=== PATIENT | female | born 1985 | race Caucasian/White ===

== ENCOUNTER → 2019-04-24 09:16 | Outpatient (CLI) | payer OTHER, MEDICAID, SELFPAY ==
--- NOTE | 2019-04-24 09:19 | DI.US.S_ITS ---
PROCEDURE: US PELVIC COMPLETE INDICATIONS: CHECK IUD PLACEMENT TECHNIQUE: Real-time scanning was performed of the pelvic organs, with image documentation. Additional endovaginal scanning was necessary due to incomplete visualization of the adnexal and endometrial structures by transabdominal scanning. COMPARISON: US, PELVIS SONO TRANSVAGINAL (PNL), 01/04/2015, 11:25. FINDINGS: Transabdominal scanning: Limited scanning through the kidneys shows no hydronephrosis. No pathologic free abdominal or pelvic fluid. Endovaginal scanning: Uterus: Uterus is normal in size at 10.8 x 5.6 x 6.4 cm. The endometrium measures 10.6 mm in combined thickness. Intrauterine device in expected position. Ovaries: Ovaries not identified. No adnexal masses. IMPRESSION: 1. Intrauterine device in expected position. 2. Ovaries not visualized. Dictated by: Goyo REDDY Interpreted: Sharri Alfonso MD on 04/24/2019 at 10:24 Approved by: Sharri Alfonso M.D. on 04/24/2019 at 10:46
== END ==
PROVIDERS: Family Provider Internal Medicine; PCP Internal Medicine; Visit Provider Obstetrics & Gynecology
DX: Z30.431 Encounter for routine checking of intrauterine contraceptive device (principal)
CPT/HCPCS: 76856

== ENCOUNTER → 2019-05-08 14:15 | Outpatient (CLI) | payer OTHER, MEDICAID, SELFPAY ==
[2019-05-08 15:26] LABS: Alanine Aminotransferase 39 IU/L (9-52); Albumin 4.4 g/dL (3.5-5.0); Albumin Globulin Ratio 1.4 (1.0-2.8); Alkaline Phosphatase 53 U/L (38-126); Aspartate Aminotransferase 27 IU/L (14-36); BUN Creatinine Ratio 16.3 (6-22); Bilirubin Total 0.5 mg/dL (0.2-1.3); Blood Urea Nitrogen 13 mg/dL (7-17); Calcium 9.6 mg/dL (8.4-10.2); Carbon Dioxide 29 mmol/L (22-32); Chloride 102 mmol/L (98-107); Estimated Glomerular Filt Rate > 60.0 mL/min (>60); Globulin 3.2 g/dL (1.7-4.1); Glucose 107 mg/dL (70-100); HEMOLYSIS < 15 (0-50); Potassium 4.2 mmol/L (3.4-5.1); Sodium 139 mmol/L (137-145); Total Protein 7.6 g/dL (6.3-8.2)
[2019-05-08 15:28] LABS: Hemoglobin A1C% w Est Avg Glu 5.2 % (4.0-6.0)
[2019-05-08 15:56] LABS: TSH w/ Reflex to FT4 2.24 uIU/mL (0.47-4.68)
== END ==
PROVIDERS: Family Provider Internal Medicine; PCP Internal Medicine; Visit Provider Family Medicine
DX: E66.01 Morbid (severe) obesity due to excess calories (principal); Z86.32 Personal history of gestational diabetes
CPT/HCPCS: 36415; 80053; 83036; 84443

== ENCOUNTER → 2019-11-19 10:53 | Outpatient (CLI) | payer OTHER, MEDICAID, SELFPAY ==
[2019-11-19 12:13] LABS: Add Manual Diff / Slide Review NO; Basophils Absolute Auto 0 /uL (0-100); Basophils Percent Auto 0.5 % (0-2); Eosinophils Absolute Auto 100 /uL (0-450); Eosinophils Percent Auto 1.8 % (2-4); Hematocrit 36.4 % (36-46); Hemoglobin 12.1 g/dL (12.0-16.0); Lymphocytes Absolute Auto 1900 /uL (1100-4500); Mean Corpuscular HGB Conc 33.3 % (30-36); Mean Corpuscular Hemoglobin 29.1 PG (26-34); Mean Corpuscular Volume 87.4 fL (80-100); Monocytes Absolute Auto 300 /uL (0-900); Monocytes Percent Auto 5.4 % (3-14); Neutrophils Absolute Auto 3300 /uL (1500-7000); Neutrophils Percent Auto 59.3 % (50-75); Platelet Count 212 X10^3/uL (150-400); Red Blood Cell Count 4.16 X10^6/uL (4.0-5.2); Red Cell Distribution Width 15.2 % (11.6-14.8); White Blood Cell Count 5.6 X10^3/uL (4.5-11.0)
[2019-11-19 12:39] LABS: HEMOLYSIS < 15 (0-50); Iron 46 ug/dL (37-170)
[2019-11-19 12:50] LABS: Percent Iron Saturation 16 % (15-50); Total Iron Binding Capacity 286 ug/dL (265-497); Transferrin 231 mg/dL (206-381)
== END ==
PROVIDERS: Family Provider Internal Medicine; PCP Family Medicine; Visit Provider Family Medicine
DX: Z86.2 Personal history of diseases of the blood and blood-forming organs and certain disorders involving the immune mechanism (principal)
CPT/HCPCS: 36415; 83540; 83550; 85025

== ENCOUNTER → 2020-11-11 13:51 | Outpatient (CLI) | payer OTHER, MEDICAID, SELFPAY ==
[2020-11-11 14:39] LABS: Add Manual Diff / Slide Review NO; Basophils Absolute Auto 0 /uL (0-100); Basophils Percent Auto 0.4 % (0-2); Eosinophils Absolute Auto 100 /uL (0-450); Eosinophils Percent Auto 1.5 % (2-4); Hematocrit 36.6 % (36-46); Hemoglobin 12.2 g/dL (12.0-16.0); Lymphocytes Absolute Auto 2000 /uL (1100-4500); Lymphocytes Percent Auto 30.9 % (25-40); Mean Corpuscular HGB Conc 33.4 % (30-36); Mean Corpuscular Hemoglobin 29.9 PG (26-34); Mean Corpuscular Volume 89.4 fL (80-100); Monocytes Absolute Auto 500 /uL (0-900); Monocytes Percent Auto 7.9 % (3-14); Neutrophils Absolute Auto 3900 /uL (1500-7000); Neutrophils Percent Auto 59.3 % (50-75); Platelet Count 211 X10^3/uL (150-400); White Blood Cell Count 6.5 X10^3/uL (4.5-11.0)
[2020-11-11 14:55] LABS: Hemoglobin A1C% w Est Avg Glu 5.6 % (4.0-6.0)
[2020-11-11 14:56] LABS: Alanine Aminotransferase 134 IU/L (<35); Albumin 4.2 g/dL (3.5-5.0); Albumin Globulin Ratio 1.3 (1.0-2.8); Alkaline Phosphatase 84 U/L (38-126); Aspartate Aminotransferase 68 IU/L (14-36); BUN Creatinine Ratio 21.1 (6-22); Bilirubin Total 0.4 mg/dL (0.2-1.3); Blood Urea Nitrogen 15 mg/dL (7-17); Calcium 9.2 mg/dL (8.4-10.2); Carbon Dioxide 28 mmol/L (22-32); Chloride 105 mmol/L (98-107); Cholesterol 174 mg/dL (140-199); Estimated Glomerular Filt Rate > 60.0 mL/min (>60); Globulin 3.3 g/dL (1.7-4.1); Glucose 108 mg/dL (70-100); HDL Cholesterol 44 mg/dL (40-60); HEMOLYSIS < 15 (0-50); LDL Cholesterol Calculated 84 mg/dL (<100); Potassium 4.1 mmol/L (3.4-5.1); Sodium 138 mmol/L (137-145); Total Protein 7.5 g/dL (6.3-8.2); Triglycerides 228 mg/dL (35-150)
== END ==
PROVIDERS: Family Provider Internal Medicine; PCP Family Medicine; Referring Provider Family Medicine; Visit Provider Family Medicine
DX: E66.01 Morbid (severe) obesity due to excess calories (principal); Z68.43 Body mass index [BMI] 50.0-59.9, adult; Z86.32 Personal history of gestational diabetes
CPT/HCPCS: 36415; 80053; 80061; 83036; 84443; 85025

== ENCOUNTER → 2021-01-10 08:55 | Outpatient (CLI) | payer OTHER, MEDICAID, SELFPAY ==
[2021-01-10 11:35] LABS: COVID19 -Nasal RAPID Negative (Negative)
== END ==
PROVIDERS: Family Provider Internal Medicine; PCP Family Medicine; Visit Provider Family Medicine Sleep Medicine
DX: Z20.822 Contact with and (suspected) exposure to COVID-19 (principal)
CPT/HCPCS: 87635; C9803

== ENCOUNTER 2022-06-04 13:55 | Emergency (ER) | payer OTHER, MEDICAID, SELFPAY ==
[2022-06-04 14:00] VITALS: BP 176/97; PULSE 97; RESP 18; TEMP 36.3; O2SAT 100; BMI 56.5
--- NOTE | 2022-06-04 18:27 | ED.EXTPRO ---
HPI - Extremity Problem General Chief complaint: Weakness Stated complaint: Pain and weakened motor skills in both arms Time Seen by Provider: 06/04/22 16:28 Source: patient Mode of arrival: Ambulatory History of Present Illness HPI Narrative: 36-year-old female former smoker presents with a chief complaint of pain in her bilateral upper extremities from the elbows to her fingers. She states that she recently started a new job and has been using her arms more than normal but denies any other change. She has some tingling in her fingertips on occasion but largely complains of pain in her forearms particularly with use. She initially states she felt like they were weak but after careful discussion it would seem that it just hurts her to use them. She has no issues above the elbows and has no other neurologic symptoms. She denies headache, blurred vision or trouble with speech. She has no neck pain, trauma or history of neck issues. She denies any lower extremity pain, swelling tingling or weakness. She denies any loss of control of bowel or bladder. She has had no rash. Related Data Home Medications Medication Instructions Recorded Confirmed fluoxetine 60 mg tablet 60 mg PO DAILY 12/26/20 09/18/21 mirtazapine 30 mg tablet 30 mg PO BEDTIME 12/26/20 09/18/21 Previous Rx's Medication Instructions Recorded hydroxyzine HCl 25 mg tablet See Rx Instructions PO BEDTIME #60 01/28/20 tabs norethindrone 0.5 mg-ethinyl 1 tab PO DAILY #28 tabs 05/15/21 estradiol 35 mcg tablet (Necon) Allergies Allergy/AdvReac Type Severity Reaction Status Date / Time No Known Drug Allergies Allergy Verified 12/26/20 16:12 Review of Systems Review of Systems Narrative: GENERAL: Denies chills, fatigue, malaise, fever, sweats. HEENT: Denies sinus pain, ear pain, sore throat, difficulty swallowing, dizziness. RESPIRATORY: Denies dyspnea, cough, wheezing, hemoptysis, sputum. CARDIOVASCULAR: Denies chest pain, palpitations, orthopnea, edema, GASTROINTESTINAL: Denies nausea, vomiting, abdominal pain, diarrhea, constipation, melena. : Denies dysuria, frequency, incontinence, hematuria, urinary retention. MUSCULOSKELETAL: See HPI SKIN: Denies rash, skin lesions, or other NEUROLOGIC: see HPI PSYCHIATRIC: No concerning psychosocial issues. 12 point review of systems is negative except for those stated above Patient History Medical History Depression (~2011) History of gestational diabetes mellitus (GDM) (08/15/16) Menorrhagia Substance abuse Vision disorder Surgical History Loss of teeth due to extraction Status post delivery (09/09/15) Status post delivery (10/31/04) Status post delivery (03/25/05) Family History Father Heart disease Alcohol abuse Grandfather Diabetes mellitus Obesity Mother Age: 58 Depression Hypertension High cholesterol Mental health problem Sleep apnea Obesity Diabetes mellitus Heart disease Family/Other Loud snoring Restless leg Bipolar disorder Alcohol abuse Social History marital status: unmarried,single number of children: 3 household members: family lives independently: Yes occupational status: employed Smoking Status: Former smoker alcohol intake: current substance use type: does not use and other Smoking Status: Former smoker alcohol intake frequency: holidays/special occasions only Substance Use Type: does not use Exam Narrative Exam Narrative: GENERAL: [36] year old patient appears stated age. Well-developed patient, in mild distress. Tearful HEAD: Atraumatic. Normocephalic. EYES: Pupils equal round and reactive. Extraocular motions intact. No scleral icterus. No injection or drainage. ENT: Nose without bleeding, purulent drainage. Throat without erythema, tonsillar hypertrophy or exudate. Airway patent. NECK: Trachea midline. Non tender, no change in symptoms with axial loading of cervical spine. CARDIOVASCULAR: Regular rate and rhythm without murmurs, gallops, or rubs. RESPIRATORY: Clear to auscultation. Breath sounds equal bilaterally. No wheezes, rales, or rhonchi. GASTROINTESTINAL: Abdomen soft, non-tender, nondistended. EXTREMITIES: No edema or joint tenderness. BACK: Nontender without deformity or crepitance. No flank tenderness. NEURO: AOx3. 5/5 strength in all measurable plata of upper extremities, no measurable sensory deficit. No swelling, erythema, warmth, fluctuance or induration. No increase symptoms with Tinel's or reverse Phalen's SKIN: No rash or erythema of visible areas Initial Vital Signs Initial Vital Signs: Vital Signs Temperature 97.4 F L 06/04/22 14:00 Pulse Rate 97 H 06/04/22 14:00 Respiratory Rate 18 06/04/22 14:00 Blood Pressure 176/97 H 06/04/22 14:00 Pulse Oximetry 100 06/04/22 14:00 Oxygen Delivery Method 06/04/22 14:00 Course Orders Ordered: ED Orders 06/04/22 18:30 CBC Auto Diff [Complete Blood Count AUTO DIFF] Stat CK [Creatine Kinase] Stat CMP [Comprehensive Metabolic Panel] Stat CRP [C-Reactive Protein Quant] Stat ESR [Erythrocyte Sedimentation Rate] Stat Vital Signs Vital signs: Vital Signs - 8 hr 06/04/22 19:41 06/04/22 19:43 06/04/22 19:43 Pulse Rate 94 H 94 H Blood Pressure 160/116 H Pulse Oximetry 100 98 MDM - Extremity (Nontraumatic) Lab Data Result diagrams: 06/04/22 18:30 06/04/22 18:30 Labs: Lab Results 06/04/22 06/04/22 Range/Units 18:30 18:30 WBC 7.7 (4.5-11.0) X10^3/uL RBC 4.14 (4.0-5.2) X10^6/uL Hgb 9.2 L (12.0-16.0) g/dL Hct 28.9 L (36-46) % MCV 69.8 L (80-100) fL MCH 22.2 L (26-34) PG MCHC 31.8 (30-36) % RDW 17.5 H (11.6-14.8) % Plt Count 312 (150-400) X10^3/uL Neut % (Auto) 55.2 (50-75) % Lymph % (Auto) 36.3 (25-40) % [place] % (Auto) 5.8 (3-14) % Eos % (Auto) 2.2 (2-4) % Baso % (Auto) 0.5 (0-2) % Neut # (Auto) 4200 (2247-5265) /uL Lymph # (Auto) 2800 (8662-7636) /uL [place] # (Auto) 400 (0-900) /uL Eos # (Auto) 200 (0-450) /uL Baso # (Auto) 0 (0-100) /uL RBC Morphology See below Hypochromasia 2+ H Anisocytosis 2+ H Microcytosis 2+ H ESR 55 H (0-20) MM/HR Sodium 138 (137-145) mmol/L Potassium 3.9 (3.4-5.1) mmol/L Chloride 104 (98-107) mmol/L Carbon Dioxide 26 (22-32) mmol/L BUN 13 (7-17) mg/dL Creatinine 0.74 (0.52-1.04) mg/dL Estimated GFR > 60 (>60) mL/min BUN/Creatinine Ratio 17.6 (6-22) Glucose 102 H (70-100) mg/dL Calcium 9.0 (8.4-10.2) mg/dL Total Bilirubin 0.4 (0.2-1.3) mg/dL AST 32 (14-36) IU/L ALT 37 H (<35) IU/L Alkaline Phosphatase 73 (38-126) U/L Total Creatine Kinase 73 (30-135) U/L C-Reactive Protein 1.7 H (<1.0) mg/dL Total Protein 8.6 H (6.3-8.2) g/dL Albumin 4.7 (3.5-5.0) g/dL Globulin 3.9 (1.7-4.1) g/dL Albumin/Globulin Ratio 1.2 (1.0-2.8) Discharge Plan Departure Patient Disposition: Home Clinical Impression: Bilateral arm pain, Iron deficiency anemia Instructions: DI for Arm Pain Activity Restrictions/Additional Instructions: *You have been diagnosed with [bilateral forearm pain with evidence of iron deficiency anemia and elevated inflammatory markers.] *What to do: *Please consider the routine use of ibuprofen 600mg every 6 hours for the next few days. Also, do not start taking iron supplementation until you follow up with your doctor. [ ] New medication prescriptions sent to your pharmacy: [ ] [ ] New medication written as a paper prescription [ ] No new medications given *Please follow up with your primary care provider in 2-3 days, call for an appointment. Let them know you were seen in the Emergency Department and that we ask that you be seen in follow up. We will electronically transmit a record of today's note if your PCP is in our system *If you do not have a primary care provider please contact the [facility] Resource line at [phone]. They will ask some questions about your medical history and help get you set up with a doctor in the community. *Return to Emergency Department if you should have any new, worsening or concerning symptoms, such as [fever greater than 101 F, shaking chills, worsening pain, persistent vomiting or other bothersome symptoms] Prescriptions: No Action hydroxyzine HCl 25 mg tablet See Rx Instructions PO BEDTIME Qty: 60 0RF Rx Instructions: Take 1 to 2 tabs at bedtime as needed for sleep. Necon 0.5/35 (28) 0.5-35 mg-mcg tablet 1 tab PO DAILY Qty: 28 11RF fluoxetine 60 mg tablet 60 mg PO DAILY mirtazapine 30 mg tablet 30 mg PO BEDTIME Referrals: Becki Brandon DO [Primary Care Provider] - Stand Alone Forms: Work Release Note Visit Report Forms: Patient Portal/API
[2022-06-04 18:57] LABS: Add Manual Diff / Slide Review NO; Basophils Absolute Auto 0 /uL (0-100); Basophils Percent Auto 0.5 % (0-2); Eosinophils Absolute Auto 200 /uL (0-450); Eosinophils Percent Auto 2.2 % (2-4); Hematocrit 28.9 % (36-46); Hemoglobin 9.2 g/dL (12.0-16.0); Lymphocytes Absolute Auto 2800 /uL (1100-4500); Lymphocytes Percent Auto 36.3 % (25-40); Mean Corpuscular HGB Conc 31.8 % (30-36); Mean Corpuscular Hemoglobin 22.2 PG (26-34); Mean Corpuscular Volume 69.8 fL (80-100); Monocytes Absolute Auto 400 /uL (0-900); Monocytes Percent Auto 5.8 % (3-14); Neutrophils Absolute Auto 4200 /uL (1500-7000); Neutrophils Percent Auto 55.2 % (50-75); Platelet Count 312 X10^3/uL (150-400); Red Blood Cell Count 4.14 X10^6/uL (4.0-5.2); Red Cell Distribution Width 17.5 % (11.6-14.8); White Blood Cell Count 7.7 X10^3/uL (4.5-11.0)
[2022-06-04 19:13] LABS: Alanine Aminotransferase 37 IU/L (<35); Albumin 4.7 g/dL (3.5-5.0); Albumin Globulin Ratio 1.2 (1.0-2.8); Alkaline Phosphatase 73 U/L (38-126); Aspartate Aminotransferase 32 IU/L (14-36); BUN Creatinine Ratio 17.6 (6-22); Bilirubin Total 0.4 mg/dL (0.2-1.3); Blood Urea Nitrogen 13 mg/dL (7-17); C-Reactive Protein Quant 1.7 mg/dL (<1.0); Carbon Dioxide 26 mmol/L (22-32); Chloride 104 mmol/L (98-107); Creatine Kinase 73 U/L (30-135); Estimated Glomerular Filt Rate > 60 mL/min (>60); Globulin 3.9 g/dL (1.7-4.1); Glucose 102 mg/dL (70-100); HEMOLYSIS < 15 (0-50); Potassium 3.9 mmol/L (3.4-5.1); Sodium 138 mmol/L (137-145); Total Protein 8.6 g/dL (6.3-8.2)
[2022-06-04 19:14] LABS: Microcytosis 2+
[2022-06-04 19:15] LABS: Anisocytosis 2+; Hypochromasia 2+
[2022-06-04 19:17] LABS: Erythrocyte Sedimentation Rate 55 MM/HR (0-20)
[2022-06-04 19:41] VITALS: PULSE 94; O2SAT 100
[2022-06-04 19:43] VITALS: BP 160/116; PULSE 94; O2SAT 98
[2022-06-07 14:06] LABS: ANA Screen, IFA Negative (.)
== END 2022-06-04 19:51 | disposition home or self-care (01) ==
PROVIDERS: Emergency Provider Emergency Medicine; Family Provider Internal Medicine; PCP Family Medicine
DX: M79.602 Pain in left arm (principal); M79.601 Pain in right arm; D50.9 Iron deficiency anemia, unspecified
CPT/HCPCS: 36415; 80053; 82550; 85025; 85651; 86038; 86140; 99281; 99283

== ENCOUNTER → 2023-11-19 16:21 | Outpatient (CLI) | payer OTHER, MEDICAID, SELFPAY ==
[2023-11-19 17:08] LABS: Add Manual Diff / Slide Review NO; Basophils Absolute Auto 0 /uL (0-100); Basophils Percent Auto 0.3 % (0-2); Eosinophils Absolute Auto 100 /uL (0-450); Hematocrit 30.8 % (36-46); Hemoglobin 10.2 g/dL (12.0-16.0); Lymphocytes Absolute Auto 2000 /uL (1100-4500); Lymphocytes Percent Auto 36.2 % (25-40); Mean Corpuscular Hemoglobin 27.5 PG (26-34); Mean Corpuscular Volume 83.5 fL (80-100); Monocytes Absolute Auto 300 /uL (0-900); Monocytes Percent Auto 5.4 % (3-14); Neutrophils Absolute Auto 3200 /uL (1500-7000); Neutrophils Percent Auto 56.1 % (50-75); Platelet Count 222 X10^3/uL (150-400); Red Blood Cell Count 3.69 X10^6/uL (4.0-5.2); Red Cell Distribution Width 15.4 % (11.6-14.8); White Blood Cell Count 5.7 X10^3/uL (4.5-11.0)
[2023-11-19 17:14] LABS: Hemoglobin A1C% w Est Avg Glu 5.1 % (4.0-6.0)
[2023-11-19 17:33] LABS: Alanine Aminotransferase 66 IU/L (<35); Albumin 3.9 g/dL (3.5-5.0); Albumin Globulin Ratio 1.2 (1.0-2.8); Alkaline Phosphatase 73 U/L (38-126); Aspartate Aminotransferase 41 IU/L (14-36); BUN Creatinine Ratio 16.2 (6-22); Bilirubin Total 0.3 mg/dL (0.2-1.3); Blood Urea Nitrogen 11 mg/dL (7-17); Carbon Dioxide 27 mmol/L (22-32); Chloride 105 mmol/L (98-107); Estimated Glomerular Filt Rate > 60 mL/min (>60); Globulin 3.2 g/dL (1.7-4.1); Glucose 104 mg/dL (70-100); HEMOLYSIS < 15 (0-50); Potassium 3.6 mmol/L (3.4-5.1); Sodium 136 mmol/L (137-145); Total Protein 7.1 g/dL (6.3-8.2)
[2023-11-19 20:01] LABS: TSH w/ Reflex to FT4 2.85 uIU/mL (0.47-4.68)
== END ==
PROVIDERS: Family Provider Internal Medicine; PCP Student in an Organized Health Care Education/Training Program; Referring Provider Student in an Organized Health Care Education/Training Program; Visit Provider Student in an Organized Health Care Education/Training Program
DX: N92.0 Excessive and frequent menstruation with regular cycle (principal)
CPT/HCPCS: 36415; 80053; 83036; 84443; 85025

== ENCOUNTER → 2023-12-05 10:52 | Outpatient (CLI) | payer OTHER, MEDICAID, SELFPAY ==
--- NOTE | 2023-12-05 10:53 | DI.US.S_ITS ---
PROCEDURE: US PELVIC COMPLETE INDICATIONS: Menorrhagia TECHNIQUE: Real-time scanning was performed of the pelvic organs, with image documentation. The patient declined transvaginal scanning. COMPARISON: [facility], , PELVIC COMPLETE, 04/24/2019, 9:41. FINDINGS: Uterus: Uterus is anteverted and minimally enlarged at 10.1 x 5.5 x 7.6 cm. The myometrium is heterogeneous. The endometrial stripe is not well seen, yet measures approximately 9 mm. No abnormal vascularity can be seen along the endometrial stripe. Ovaries: Neither ovary can be seen. No adnexal masses are seen on either side. Other: No pathologic free abdominal or pelvic fluid. This study is limited by body habitus. This study is further limited by transabdominal only technique. Bowel gas further limits this study. IMPRESSION: Limited study, with only transabdominal images. The endometrial stripe is not well seen. Neither ovary is seen. We strive to produce accurate, complete, and clear reports of imaging services. To assist us in improving patient care, this report was composed using standard report templates and voice recognition software. Therefore, it may contain abnormal punctuation, insertions and/or omissions. Occasional wrong-word or sound-alike substitutions may occur. Though we review the report and make efforts to correct it, we do recommend that the report be read carefully in proper context to recognize any text inaccuracies. Dictated by: Silvestre Varela M.D. on 12/05/2023 at 11:04 Approved by: Silvestre Varela M.D. on 12/05/2023 at 11:06
== END ==
PROVIDERS: Family Provider Internal Medicine; PCP Student in an Organized Health Care Education/Training Program; Referring Provider Student in an Organized Health Care Education/Training Program; Visit Provider Student in an Organized Health Care Education/Training Program
DX: N92.0 Excessive and frequent menstruation with regular cycle (principal)
CPT/HCPCS: 76856